=== PATIENT | male | born 1975 | race Caucasian/White ===

== ENCOUNTER → 2024-03-19 15:49 | Outpatient (BNVA) | payer MEDICAID, SELFPAY | PROVIDERS: Referring Provider Family Medicine; Visit Provider Internal Medicine Cardiovascular Disease | DX: R07.9 Chest pain, unspecified (principal); R06.09 Other forms of dyspnea | CPT/HCPCS: 93005 ==

== ENCOUNTER 2024-04-16 08:31 | Outpatient (CLI) | payer MEDICAID, SELFPAY ==
[2024-04-16 08:09] VITALS: BMI 36.9
--- NOTE | 2024-04-16 08:12 | ECG_ITS ---
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
--- NOTE | 2024-04-16 08:13 | NMCV_ITS ---
NM stephenie perf SPECT r/s* [id number] Marvin Todd Age: 48 Gender: M : 1975 Exam Date: 04/16/2024 09:07 Ordering Phys: Ethan Fernández MD ([email or web address]) Technologist: MYCHAL Padilla Exam Location: [facility] Indications: cp STRESS TEST Please [facility] for [facility] IMAGE PROTOCOL Rest/Stress 1 Lexiscan Day Radiopharmaceutical Dose (mCi) Administration Site Administered by Rest: Tc-99m 10.7 IV MYCHAL [place] Sestamibi Stress:Tc-99m 32.8 IV MYCHAL [place] Sestamibi Rest: 16-Apr-2024 60 Discovery 630 Stress: 16-Apr-2024 30 Discovery 630 Images obtained in supine and prone position. 0.4mg Lexiscan. SPECT RESULTS Technical Quality: Good Raw Data Analysis: Normal Image Corrections: No attenuation or motion correction applied Summed Stress Score: 16 Summed Rest Score: 12 Summed Difference Score: 5 PERFUSION FINDINGS Moderate area of moderate to severely decreased tracer uptake involving the basal, mid and apical inferior; basal and mid inferolateral and apical lateral segments. Minimal reversibility was noted in these regions. FUNCTIONAL RESULTS (calculated via Gated SPECT) Stress Image LV EF (%): 61 Stress EDV (mL):119 TID: 0.96 Stress ESV (mL):46 FUNCTIONAL FINDINGS: Segmental wall motion analysis revealing no gross wall motion abnormalities IMPRESSIONS 1. Myocardial perfusion imaging revealing moderate area of moderate to severely decreased tracer uptake involving the inferior, inferolateral and apical lateral regions with some reversibility suggesting extensive myocardial scarring with some possible preinfarction ischemia, predominantly in the distribution of the circumflex artery.(Summed stress score of 16 with a difference score of 5) 2. Normal LV ejection fraction 61%. 3. LV wall motion analysis revealing no gross wall motion abnormalities. 4. Minimally dilated LV cavity with end-systolic volume of 46 mL No similar previous studies are available for comparison Dr Ethan Fernández MD FACC (Electronically Signed) Final Date: 18 April 2024 08:52 S
[2024-04-16] MEDS: regadenoson 0.4 Mg/5 ml Syringe IVP (10:02)
[2024-04-16 10:20] VITALS: BP 132/99; PULSE 73
== END 2024-04-16 08:32 | disposition home or self-care (01) ==
LOC: CDL 08:31
PROVIDERS: Family Provider Family Medicine; PCP Family Medicine; Visit Provider Internal Medicine Cardiovascular Disease
DX: Z98.61 Coronary angioplasty status (principal); R94.39 Abnormal result of other cardiovascular function study; R06.02 Shortness of breath
CPT/HCPCS: 36415; 78452; 93017; 93306; 96374; A9500; J2785

== ENCOUNTER 2024-12-13 13:04 | Outpatient (CLI) | payer BC, MEDICAID, SELFPAY ==
--- NOTE | 2024-12-13 13:45 | MR_ITS ---
WS: [id number] MRI HEAD WITHOUT CONTRAST TECHNIQUE: Sagittal T1, T2 axial, T2 axial FLAIR, axial and coronal T1 images, axial susceptibility weighted imaging, axial diffusion weighted images, and coronal T2 images were obtained. CLINICAL INFORMATION: Z86.73 - Personal history of transient ischemic attack (T... COMPARISON: None. FINDINGS: No evidence of restricted diffusion to suggest acute ischemia. Mild patchy supratentorial white matter changes. Chronic lacunar infarct in the LEFT sarah radiata with a small amount of hemosiderin. No significant parenchymal volume loss. Tiny chronic lacunar infarct LEFT cerebellum. Normal vascular flow voids at the skull base. No extra-axial fluid collections. Mild mucosal thickening in the paranasal sinuses. Mastoid air cells are well aerated. Normal optic chiasm and pituitary infundibulum. Temporal lobes and hippocampal formations are normal in appearance. No other suspicious intracranial signal abnormalities. MR/MR head wo con* [id number] IMPRESSION: 1. No evidence of restricted diffusion to suggest acute ischemia. 2. Mild patchy supratentorial white matter changes. No significant parenchymal volume loss. 3. Chronic lacunar infarct in the LEFT sarah radiata. 4. Tiny chronic lacunar infarct LEFT cerebellum. 5. Temporal lobes and hippocampal formations are normal in appearance.
[2024-12-13 14:21] LABS: Blood Urea Nitrogen 19 mg/dL (6-20)
--- NOTE | 2024-12-13 14:30 | MR_ITS ---
WS: [id number] MRA CAROTID WITHOUT AND WITH GADOLINIUM ENHANCEMENT TECHNIQUE: Axial 2-D TOF and gadolinium bolus images obtained with axial images and axial, sagittal, and coronal 2-D reformatted images. CLINICAL INFORMATION: Z86.73 - Personal history of transient ischemic attack (T... COMPARISON: None. FINDINGS: RIGHT: RIGHT common carotid artery is patent. No significant RIGHT ICA stenosis. RIGHT ICA is patent to the skull base. LEFT: LEFT common carotid artery is patent. No significant LEFT ICA stenosis. LEFT ICA is patent to the skull base. LEFT dominant vertebral artery. Smaller but patent RIGHT vertebral artery. Proximal subclavian arteries are patent. MR/MR angio neck w con* [id number] IMPRESSION: 1. No significant cervical ICA stenosis. 2. LEFT dominant vertebral artery. Both vertebral arteries are patent.
--- NOTE | 2024-12-13 15:15 | MR_ITS ---
WS: [id number] MRA HEAD TECHNIQUE: Axial 3-D TOF images obtained with axial images and axial, sagittal, and coronal 2-D reformatted images. CLINICAL INFORMATION: Z86.73 - Personal history of transient ischemic attack (T... COMPARISON: None. FINDINGS: Distal vertebral arteries are patent. Basilar artery is patent. Normal vascularity to the TILE APPLICATOR territory bilaterally. Patent LEFT posterior communicating artery. Both ICAs are patent at the skull base. Normal vascularity to the SETH and MCA territories bilaterally. No evidence of flow-limiting stenosis. MR/MR angio head con [id number] IMPRESSION: Normal intracranial MRA
== END 2024-12-13 13:05 | disposition home or self-care (01) ==
LOC: RAD 13:06
PROVIDERS: Radiology Neuroradiology; Family Provider Family Medicine; PCP Family Medicine; Visit Provider Specialist
DX: Z09 Encounter for follow-up examination after completed treatment for conditions other than malignant neoplasm (principal); Z86.73 Personal history of transient ischemic attack (TIA), and cerebral infarction without residual deficits
CPT/HCPCS: 70544; 70548; 70551; 82565; 84520

== ENCOUNTER 2025-01-22 13:05 | Outpatient (CLI) | payer BC, MEDICAID, SELFPAY | END 2025-01-22 13:06 | disposition home or self-care (01) | LOC: SLEEP 13:10 | PROVIDERS: Family Provider Family Medicine; PCP Family Medicine; Referring Provider Specialist; Visit Provider Internal Medicine Pulmonary Disease | DX: G47.10 Hypersomnia, unspecified (principal) | CPT/HCPCS: G0399 ==